=== PATIENT | male | born 1985 | race African-American/Black ===

== ENCOUNTER 2016-04-15 19:08 | Emergency (ER) | payer SELFPAY ==
[~2016-04-15] VITALS: Ht 172.7 cm; Wt 87.0 kg
[~2016-04-15 19:08] MED LIST: CEPH500C3 PO
[2016-04-15 19:15] VITALS: BP 163/101; PULSE 105; RESP 18; O2SAT 99
[2016-04-15 19:22] VITALS: PULSE 104; RESP 18; O2SAT 100
[2016-04-15] MEDS ORDERED: SODIUM CHLOR 0.9% 1000 ML INJ 1,000 ML IV ONE (19:30)
[2016-04-15] MEDS ORDERED: MORPHINE SULFATE 8 MG/ML INJ IV PUSH ONE (19:30)
[2016-04-15] MEDS ORDERED: ceFAZolin 2 GM PREMIX 50 ML IV ONE (19:30)
[2016-04-15] MEDS ORDERED: TETANUS/DIPHTHERIA TOXOID ADULT 0.5 ML VIAL IM ONE (19:45)
[2016-04-15 19:50] LABS: AUTOMATED NEUTROPHIL # 10.5 TH/MM3 (1.8-7.7); BASOPHIL # 0.1 TH/MM3 (0-0.2); BASOPHIL % 0.6 % (0.0-2.0); EOSINOPHIL % 0.2 % (0.0-4.0); HEMATOCRIT 43.6 % (39.0-51.0); HEMO FLAGS DIFF FINAL; LYMPH % 21.4 % (9.0-44.0); LYMPHOCYTE # 3.3 TH/MM3 (1.0-4.8); MEAN CELL VOLUME 89.6 FL (80.0-100.0); MEAN CORPUSCULAR HEMOGLOBIN 30.4 PG (27.0-34.0); MEAN CORPUSCULAR HGB CONC 33.9 % (32.0-36.0); MONO % 9.7 % (0.0-8.0); NEUT % 68.1 % (16.0-70.0); PLATELET COUNT 223 TH/MM3 (150-450); RED BLOOD COUNT 4.87 MIL/MM3 (4.50-5.90); RED CELL DISTRIBUTION WIDTH 12.8 % (11.6-17.2); WHITE BLOOD COUNT 15.5 TH/MM3 (4.0-11.0)
[2016-04-15 20:07] LABS: APTT (PATIENT) 25.5 SEC (24.3-30.1); PROTHROMBIN TIME - PATIENT 11.4 SEC (9.8-11.6)
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
[2016-04-15 20:16] LABS: BICARBONATE 22.5 MEQ/L (21.0-32.0); POTASSIUM 3.6 MEQ/L (3.5-5.1)
[2016-04-15] MEDS ORDERED: MORPHINE SULFATE 4 MG/ML INJ IV PUSH ONE (21:30)
[2016-04-15] MEDS ORDERED: PERC10TA27 PO (22:02)
[2016-04-15] MEDS ORDERED: CEPH-460 PO (22:17)
[2016-04-15] MEDS ORDERED: BACT800T5 PO (22:17)
[2016-04-15] MEDS ORDERED: IBUP800T23 PO (22:17)
[2016-04-15 22:42] VITALS: BP 146/89; PULSE 95; RESP 18; TEMP 98.4; O2SAT 98
[2016-04-16] MEDS ORDERED: CRUTMIS35 (15:56)
== END 2016-04-15 23:31 | disposition home or self-care (01) ==
LOC: NEPE 19:08
DX: S71.102A Unspecified open wound, left thigh, initial encounter (principal); F17.210 Nicotine dependence, cigarettes, uncomplicated; Z23 Encounter for immunization; X95.9XXA Assault by unspecified firearm discharge, initial encounter; Y92.410 Unspecified street and highway as the place of occurrence of the external cause; Y99.8 Other external cause status
CPT/HCPCS: 73552; 80048; 85025; 85610; 85730; 86850; 86900; 86901; 90471; 90714; 96361; 96365; 96375; 96376; 99285; J0690; J2270; J7030